=== PATIENT | female | born 1950 | race Caucasian/White ===

== ENCOUNTER 2017-12-18 11:54 | Emergency (ER) | payer MEDICARE ==
[~2017-12-18] VITALS: Ht 165.1 cm; Wt 81.5 kg
[2017-12-18 11:56] VITALS: BP 149/73; PULSE 20; PULSE 86; RESP 14; RESP 20; TEMP 98.4; O2SAT 96
[2017-12-18] MEDS ORDERED: ACETAMINOPHEN/HYDROcodone 325 MG/5 MG TAB PO ONE (12:30)
--- NOTE | 2017-12-18 12:51 | RADRPT ---
EXAM DATE/TIME: 12/18/2017 12:38 [place] COMPARISON: No previous studies available for comparison. INDICATIONS : Left wrist pain post fall. MEDICAL HISTORY : None. SURGICAL HISTORY : None. ENCOUNTER: Initial ACUITY: 1 day PAIN SCORE: 7/10 LOCATION: Left wrist. FINDINGS: Three view examination of the left wrist demonstrates a transverse angulated fracture through the dis gilberto radius. There is a small avulsion fracture of the ulnar styloid process. No joint dislocation is seen. The carpal bones are grossly intact. CONCLUSION: Collies fracture at the wrist. Alon Francis MD on December 18, 2017 at 12:50 Board Certified Radiologist. This report was verified electronically.
[2017-12-18] MEDS ORDERED: NORC5TAB PO (13:43)
--- NOTE | 2017-12-18 13:43 | PD ---
HPI Chief Complaint: Injury Time Seen by Provider: 12:16 Travel History International Travel<30 days: No Contact w/Intl Traveler<30days: No Traveled to known affect area: No History of Present Illness HPI Patient is a 67-year-old female who comes in complaining of left wrist pain after slip and fall today. She says she slipped on some mud and she broke the fall with her left hand. She denies hitting her head. She denies any loss of consciousness. She says she was feeling well prior to the event. She did not have any chest pain, shortness of breath, dizziness. She says she is only really having pain to her left wrist. She is able to walk after the incident. She has not taken anything for the pain. Movement makes her pain worse. Severity is mild to moderate. PFSH Past Medical History Arthritis: Yes Atrial Fibrillation: No Congestive Heart Failure: No COPD: No Diabetes: No Past Surgical History Surgical History: No Previous Surgery Social History Tobacco Use: No Allergies-Medications (Allergen,Severity, Reaction): Coded Allergies: No Known Allergies (Verified Allergy, Unknown, 12/18/17) Reported Meds & Prescriptions Reported Meds & Active Scripts Active Alpha (Hydrocodone-Acetaminophen) 5 Mg-325 Mg Tab 1 Tab PO Q6H PRN Review of Systems General / Constitutional: No: Fever, Chills HENT: No: Headaches, Lightheadedness Cardiovascular: No: Chest Pain or Discomfort Respiratory: No: Shortness of Breath Gastrointestinal: No: Nausea, Vomiting Musculoskeletal: Positive: Edema, Pain Skin: No Rash, No Change in Pigmentation Neurologic: No: Weakness, Dizziness Physical Exam Narrative GENERAL: Awake and alert, in no acute distress. SKIN: Focused skin assessment warm/dry. No wounds or signs of infection. HEAD: Atraumatic. Normocephalic. EYES: Pupils equal and round. No scleral icterus. EOMI. ENT: Mucous membranes pink and moist. NECK: Trachea midline. No JVD. No cervical spine tenderness. CARDIOVASCULAR: Regular rate and rhythm. No murmur appreciated. RESPIRATORY: No accessory muscle use. Clear to auscultation. Breath sounds equal bilaterally. MUSCULOSKELETAL: No clubbing. No cyanosis. No tenderness to palpation of the thoracic or lumbar spine. No tenderness to palpation of the shoulder or elbow. There is edema of the left wrist with tenderness to palpation of the radial side of the wrist. Sensation and cap refill intact. NEUROLOGICAL: Awake and alert. No obvious cranial nerve deficits. Motor grossly within normal limits. Normal speech. Data Data Last Documented VS Vital Signs Date Time Temp Pulse Resp B/P (MAP) Pulse Ox O2 Delivery O2 Flow Rate FiO2 12/18/17 14:13 12/18/17 11:56 98.4 86 20 96 Orders Orders Wrist, Complete ([id number]) (12/18/17 ) Acetamin-Hydrocod 325-5 Mg (Alpha 5-325 (12/18/17 12:30) Splint Or Brace Apply/Monitor (12/18/17 13:10) Ed Discharge Order (12/18/17 13:43) MDM Medical Decision Making Medical Screen Exam Complete: Yes Emergency Medical Condition: Yes Differential Diagnosis Wrist fracture versus sprain versus hand fracture Narrative Course Patient is a 67-year-old female who comes in complaining of wrist pain after a fall today. Exam shows swelling and tenderness to the left wrist. X-ray performed shows a Colles' fracture. Patient given pain medicine. Placed in a splint. Advised follow-up with orthopedics. Discharged with prescription for pain medicine. Diagnosis Primary Impression: Wrist fracture, left Qualified Codes: S62.102A - Fracture of unspecified carpal bone, left wrist, initial encounter for closed fracture Referrals: Boni Jean-Baptiste MD call for appointment Patient Instructions: General Instructions, Wrist Fracture in Adults (ED) Additional Instructions: Follow up with orthopedics. Take pain medicine as needed. Wear the splint until you see the orthopedic surgeon. Return to the ED as needed for any worsening symptoms. Scripts Hydrocodone-Acetaminophen (Alpha) 5 Mg-325 Mg Tab 1 TAB PO Q6H Y for PAIN, #15 TAB 0 Refills Prov: Mere Ferrell MD 12/18/17 Disposition: 01 DISCHARGE HOME Condition: Stable Mere Ferrell MD Dec 18, 2017 13:43
== END 2017-12-18 14:25 | disposition home or self-care (01) ==
LOC: NEPD 11:54
DX: S52.532A Colles' fracture of left radius, initial encounter for closed fracture (principal); W01.0XXA Fall on same level from slipping, tripping and stumbling without subsequent striking against object, initial encounter; M19.90 Unspecified osteoarthritis, unspecified site
CPT/HCPCS: 29125; 73110